=== PATIENT | male | born 1985 ===

== ENCOUNTER 2018-08-09 14:14 | Outpatient (CLI) | payer SELFPAY | END 2018-08-09 14:15 | disposition EMS.NT | LOC: EMS 14:14 | PROVIDERS: ATTEND Surgery | DX: R58 Hemorrhage, not elsewhere classified (principal) ==

== ENCOUNTER 2019-09-08 04:06 | Emergency (ER) | payer OTHER ==
--- NOTE | 2019-09-08 04:14 | ED Physician Documentation ---
PD HPI ABD PAIN - Stated complaint Stated Complaint: LOWER BACK PX, N/V - Chief complaint Chief Complaint: Abd Pain - History obtained from History obtained from: Patient - History of Present Illness Timing - onset: How many hours ago (3) Timing - duration: Hours (3) Timing - details: Abrupt onset, Still present Quality: Cramping, Aching, Pain Location: LLQ Radiation: Lower back, Left flank Improved by: No: Laying still, Position Worsened by: No: Moving, Breathing, Position Associated symptoms: Nausea. No: Fever, Vomiting, Diarrhea, Dysuria Similar symptoms before: Diagnosis (kidney stone about 5 years ago. No recent dysuria.) Recently seen: Not recently seen Review of Systems Constitutional: denies: Fever Nose: denies: Rhinorrhea / runny nose, Congestion Throat: denies: Sore throat Respiratory: denies: Cough GI: reports: Abdominal Pain, Nausea. denies: Abdominal Swelling, Vomiting, Diarrhea : denies: Dysuria, Frequency, Hematuria Neurologic: denies: Generalized weakness, Near syncope PD PAST MEDICAL HISTORY - Past Medical History Past Medical History: No Cardiovascular: Hypertension Respiratory: None Neuro: None Endocrine/Autoimmune: None : Kidney stones (once that passed without intervention) - Present Medications Home Medications: Ambulatory Orders Medication Instructions Recorded Confirmed Ibuprofen [Motrin] 600 mg PO TID PRN #25 tab 09/08/19 Ondansetron Odt [Zofran] 4 mg TL Q6H PRN #10 tablet 09/08/19 Oxycodone HCl/Acetaminophen 1 - 2 each PO Q6H PRN #20 tablet 09/08/19 [Percocet 5-325 mg Tablet] Propranolol [Inderal] 09/08/19 Tamsulosin [Flomax] 0.4 mg PO DAILY #5 capsule 09/08/19 - Allergies Allergies/Adverse Reactions: Allergies Allergy/AdvReac Type Severity Reaction Status Date / Time No Known Drug Allergies Allergy Verified 09/08/19 04:16 - Living Situation Living Situation: reports: With spouse/s.o. Living Arrangement: reports: At home - Family History Family history: denies: Aortic aneursym, Aortic dissection PD ED PE NORMAL - Vitals Vital signs reviewed: Yes - General General: Alert and oriented X 3, Well developed/nourished, Other (appears in pain) - Cardiac Cardiac: RRR, No murmur - Respiratory Respiratory: Clear bilaterally - Abdomen Abdomen: Normal bowel sounds, Soft, Non distended, No organomegaly, Other (tender left lower abd without percussion nor rebound tenderness) - Back Back: Other (left CVA tender to percussion) - Derm Derm: Normal color, Warm and dry - Extremities Extremities: Normal ROM s pain - Neuro Neuro: Alert and oriented X 3, No motor deficit, Normal speech Results - Vitals Vitals: Vital Signs - 24 hr 09/08/19 04:09 Temperature 36 C L Heart Rate 68 Respiratory 18 Rate Blood Pressure 133/94 H O2 Saturation 100 - Labs Labs: Laboratory Tests 09/08/19 09/08/19 04:15 04:40 Sodium 138 Potassium 4.0 Chloride 101 Carbon Dioxide 28 Anion Gap 9.0 BUN 11 Creatinine 0.9 Estimated GFR (MDRD) 98 Glucose 116 H Calcium 9.6 Total Bilirubin 0.2 AST 51 H ALT 94 H Alkaline Phosphatase 96 Total Protein 8.0 Albumin 4.3 Globulin 3.7 Albumin/Globulin Ratio 1.2 Lipase 21 L Urine Color YELLOW Urine Clarity CLEAR Urine pH 6.0 Ur Specific [place] >=1.030 H Urine Protein TRACE Urine Glucose (UA) NEGATIVE Urine Ketones TRACE Urine Occult Blood LARGE H Urine Nitrite NEGATIVE Urine Bilirubin NEGATIVE Urine Urobilinogen 0.2 (NORMAL) Ur Leukocyte Esterase NEGATIVE Urine RBC TNTC H Urine WBC 0-3 Ur Squamous Epith Cells NONE SEEN Urine Crystals 0-2 Calcium Oxalate Urine Bacteria Rare Urine Mucus Moderate Strands Ur Microscopic Review INDICATED Urine Culture Comments NOT INDICATED - Rads (name of study) abd/pelvic CT Radiology: Prelim report reviewed (3 mm stone distal left ureter with mild hydro. ), See rad report PD MEDICAL DECISION MAKING - ED course Complexity details: re-evaluated patient (pain improved with IV meds. ), considered differential, d/w patient Departure - Departure Disposition: 01 Home, Self Care Clinical Impression: Left sided abdominal pain, Ureterolithiasis Condition: Stable Record reviewed to determine appropriate education?: Yes Instructions: ED Stone Renal W Colic Follow-Up: DENNY Moreno [Provider Group] Prescriptions: Ibuprofen [Motrin] 600 mg PO TID PRN #25 tab PRN Reason: Pain Ondansetron Odt [Zofran] 4 mg TL Q6H PRN #10 tablet PRN Reason: Nausea / Vomiting Oxycodone HCl/Acetaminophen [Percocet 5-325 mg Tablet] 1 - 2 each PO Q6H PRN #20 tablet PRN Reason: pain Tamsulosin [Flomax] 0.4 mg PO DAILY #5 capsule Comments: Frequent fluids to stay well-hydrated. Use some anti-inflammatories such as ibuprofen 600 mg 3 times a day with food. Also tamsulosin daily for the next several days to reduce ureteral spasms. Add Tylenol or Percocet if needed for pain and ondansetron if needed for nausea. Rest off work for today and possibly tomorrow. Follow-up with your primary care if not improved over the next several days to week and return to the ER or go to the clinic if worsened again despite the above medicines. Typically a stone of the size 85 to 90% of them will pass within 2 days. Forms: Activity restrictions
[2019-09-08] MEDS ORDERED: ONDANSETRON 4 MG/2 ML VIAL IVP STA (04:27)
[2019-09-08] MEDS ORDERED: SODIUM CHLORIDE 0.9% 1,000 ML IV ONE (04:27)
[2019-09-08] MEDS ORDERED: KETOROLAC 30 MG/ML VIAL IVP STA (04:28)
[2019-09-08] MEDS ORDERED: HYDROmorphone 2 MG/ML VIAL IVP STA (04:28)
[2019-09-08 04:37] LABS: BILIRUBIN,URINE NEGATIVE (NEGATIVE); GLUCOSE, URINE (UA) NEGATIVE (NEGATIVE); KETONES,URINE (UA) TRACE mg/dL (NEGATIVE); LEUKOCYTE ESTERASE, URINE NEGATIVE (NEGATIVE); NITRITE,URINE NEGATIVE (NEGATIVE); OCCULT BLOOD,URINE LARGE (NEGATIVE); PROTEIN,URINE TRACE mg/dL (NEGATIVE); UROBILINOGEN,URINE 0.2 (NORMAL) E.U./dL (NORMAL)
[2019-09-08 04:49] LABS: BACTERIA,URINE Rare /HPF (None Seen); CLARITY,URINE CLEAR (CLEAR); RBC,URINE TNTC /HPF (0-5); SQUAMOUS EPITHELIAL CELL,UR NONE SEEN (<= Few)
[2019-09-08 04:50] LABS: CRYSTALS,URINE 0-2 Calcium Oxalate /LPF; MUCUS,URINE Moderate Strands
[2019-09-08 05:16] LABS: ALBUMIN 4.3 g/dL (3.2-5.5); ALBUMIN/GLOBULIN RATIO 1.2 (1.0-2.2); BILIRUBIN,TOTAL 0.2 mg/dL (0.2-1.0); CALCIUM 9.6 mg/dL (8.5-10.3); CREATININE 0.9 mg/dL (0.6-1.2)
--- NOTE | 2019-09-08 05:25 | CT Report ---
Reason: left abd/flank pain Procedure Date: 09/08/2019 Accession Number: [id number] / [id number] Procedure: CT - Abdomen/Pelvis WO CPT Code: Final Report FULL RESULT: EXAM: CT ABDOMEN AND PELVIS (CT KUB) EXAM DATE: 09/08/2019 04:56 AM. CLINICAL HISTORY: Left abd/flank pain. COMPARISONS: None. TECHNIQUE: Routine axial helical CT imaging was performed through the abdomen and pelvis without IV contrast. Reconstructions: Coronal and sagittal. In accordance with CT protocol optimization, one or more of the following dose reduction techniques were utilized for this exam: automated exposure control, adjustment of mA and/or KV based on patient size, or use of iterative reconstructive technique. FINDINGS: Lung Bases: Unremarkable. Right Kidney/Ureter: No stones, hydronephrosis, or hydroureter. No perinephric fat stranding. Left Kidney/Ureter: Mild left hydroureteronephrosis secondary to left distal ureteral 2 mm calculus located just proximal to ureterovesical junction. No additional calculi. No perinephric fat stranding. Other Solid Organs: Noncontrast images of the solid organs are grossly unremarkable. Gallbladder/Bile Ducts: Unremarkable. Peritoneal Cavity: No free fluid, free air or ana laura adenopathy. Bowel is grossly unremarkable. Appendix is normal. Pelvic Organs: Bladder is decompressed which limits evaluation. No calculi. No significant wall thickening. Prostate within normal limits. Vasculature: Unremarkable. Other: Tiny fat-containing left inguinal hernia. IMPRESSION: Mild left hydroureteronephrosis secondary to 2 mm left distal ureteral calculus located just proximal to ureterovesical junction. [facility]
[2019-09-08] MEDS ORDERED: oxyCODONE/ACET 5/325 Prepack 4 PO STA (05:32)
[2019-09-08] MEDS ORDERED: DEXAMETHASONE 10 MG/ML VIAL IVP STA (05:32)
[2019-09-08] MEDS ORDERED: ONDANSETRON ODT 4 MG Prepack 2 TL PRN (05:32)
[2019-09-08] MEDS ORDERED: TAMSULOSIN 0.4 MG CAPSULE PO STA (05:32)
[2019-09-08 05:47] VITALS: BP 128/84
== END 2019-09-08 05:46 | disposition home or self-care (01) ==
LOC: ED 04:06
DX: N13.2 Hydronephrosis with renal and ureteral calculous obstruction (principal); I10 Essential (primary) hypertension
CPT/HCPCS: 36415; 74176; 80053; 81001; 83690; 96361; 96374; 96375; 99284; A9270; J1170; 81003; 87086